=== PATIENT | female | born 1985 | race Caucasian/White ===

== ENCOUNTER → 2021-07-21 | Outpatient (CLI) | payer OTHER ==
[~2021-07-21] MED LIST: ALLEGRA ALLERG180 MG PO; CLARITIN 10MG T10 MG PO; DOCUSATE SODIU100 MG PO; FLEXERIL 10 MG10 MG PO; FLUTICASONE; IBUPROFEN600 MG PO; IBUPROFEN800 MG PO; JUNEL 1.5 MG-31 EACH PO; LEVOTHYROXINE50 MCG PO; LEXAPRO TAB 1010 MG PO; LIDOCAINE-PRILO30 GM TOP; MONTELUKAST SOD10 MG PO; NAPROXEN250 MG PO; NORCO 5-325 TA1 EACH PO; NORCO 7.5-3251 EACH PO; ONDANSETRON ODT8 MG PO; PHENERGAN 12.12.5 M1 PO; ROXICODONE TAB 55 MG PO
[2021-07-21 09:04] LABS: HEMOGLOBIN 13.8 gm/dl (12.3-15.3); RED BLOOD COUNT 4.58 M/UL (4.00-5.10)
== END ==
LOC: OPSV2 07:53
PROVIDERS: Obstetrics & Gynecology
DX: Z01.812 Encounter for preprocedural laboratory examination (principal); R10.2 Pelvic and perineal pain
CPT/HCPCS: 81001; 85025

== ENCOUNTER → 2021-07-25 | Day surgery (SDC) | payer OTHER | END | disposition home or self-care (01) | LOC: OR 05:38 | DX: N72 Inflammatory disease of cervix uteri (principal); N80.9 Endometriosis, unspecified; F32.9 Major depressive disorder, single episode, unspecified; F41.9 Anxiety disorder, unspecified; E78.5 Hyperlipidemia, unspecified; E03.9 Hypothyroidism, unspecified; E53.8 Deficiency of other specified B group vitamins; Z20.822 Contact with and (suspected) exposure to COVID-19 | CPT/HCPCS: 81001; 84703; J0690; J1100; J1170; J1885; J2250; J2405; J2704; J2765; J2795; J3010; J7120; U0002 ==